=== PATIENT | female | born 1970 | race Caucasian/White ===

== ENCOUNTER → 2022-03-02 10:52 | Outpatient (BNVA) | payer BC, SELFPAY | PROVIDERS: Visit Provider Family Medicine | DX: I10 Essential (primary) hypertension (principal); R10.11 Right upper quadrant pain; R56.9 Unspecified convulsions; F32.A Depression, unspecified; Z23 Encounter for immunization; F41.9 Anxiety disorder, unspecified; F41.0 Panic disorder [episodic paroxysmal anxiety] | CPT/HCPCS: 80053; 80061; 85025 ==